=== PATIENT | male | born 1975 | race Caucasian/White ===

== ENCOUNTER 2019-01-22 16:12 | Emergency (ER) | payer OTHER ==
[~2019-01-22] VITALS: Ht 175.3 cm; Wt 85.7 kg
[~2019-01-22 16:12] MED LIST: GLUCOPHAGE XR500 MG PO; NEXIUM20 MG/PACK PO; NORFLEX100 MG PO; SEPTRA DS TABLE1 TAB PO
[2019-01-22] MEDS ORDERED: HUMALOG100 UNIT/1 SQ (17:03)
[2019-01-22] MEDS ORDERED: LANTUS SOL100 UNIT/1 SUBCUTANEO (17:03)
[2019-01-22] MEDS ORDERED: LOSARTAN-HCTZ1 EAC1 PO (17:04)
[2019-01-22] MEDS ORDERED: CLINDAMYCIN HC300 MG PO (17:04)
[2019-01-22] MEDS ORDERED: DOXAZOSIN MESYLA4 MG PO (17:04)
[2019-01-22] MEDS ORDERED: BACTRIM 400-801 EACH PO (17:05)
== END 2019-01-22 19:06 | disposition home or self-care (01) ==
LOC: ER 16:12
DX: L02.413 Cutaneous abscess of right upper limb (principal)

== ENCOUNTER 2019-01-29 11:10 | Emergency (ER) | payer OTHER ==
[~2019-01-29] VITALS: Ht 175.3 cm; Wt 82.6 kg
[~2019-01-29 11:10] MED LIST changes: +BACTRIM 400-801 EACH PO; +CLINDAMYCIN HC300 MG PO; +DOXAZOSIN MESYLA4 MG PO; +HUMALOG100 UNIT/1 SQ; +LANTUS SOL100 UNIT/1 SUBCUTANEO; +LOSARTAN-HCTZ1 EAC1 PO
== END 2019-01-29 12:56 | disposition home or self-care (01) ==
LOC: ER 11:10
DX: Z48.02 Encounter for removal of sutures (principal)

== ENCOUNTER 2019-10-01 22:50 | Emergency (ER) | payer OTHER ==
[~2019-10-01] VITALS: Ht 175.3 cm; Wt 84.4 kg
[2019-10-02] MEDS ORDERED: KETO10TA2 PO (01:14)
== END 2019-10-02 01:27 | disposition home or self-care (01) ==
LOC: ER 22:50
DX: S40.012A Contusion of left shoulder, initial encounter (principal); S20.222A Contusion of left back wall of thorax, initial encounter; W22.8XXA Striking against or struck by other objects, initial encounter; Y93.89 Activity, other specified; Y92.89 Other specified places as the place of occurrence of the external cause; Y99.8 Other external cause status